=== PATIENT | male | born 1990 | race Two or more races ===

== ENCOUNTER 2022-10-06 02:25 | Emergency (ER) | payer OTHER ==
[~2022-10-06] VITALS: Ht 170.2 cm; Wt 67.1 kg
[~2022-10-06 02:25] MED LIST: KETO10TA2 PO
== END 2022-10-06 05:11 | disposition home or self-care (01) ==
LOC: ER 02:25
DX: K52.9 Noninfective gastroenteritis and colitis, unspecified (principal); Z20.822 Contact with and (suspected) exposure to COVID-19

== ENCOUNTER 2025-07-24 12:07 | Emergency (ER) | payer OTHER ==
[~2025-07-24] VITALS: Ht 172.7 cm; Wt 71.7 kg
[2025-07-24] MEDS ORDERED: DEXAMETHASONE SODIUM PHOSPHATE 4 MG/ML VIAL IM STA (15:19)
[2025-07-24] MEDS ORDERED: CLINDAMYCIN PHOSPHATE 600 MG in DEXTROSE 5 % IN WATER 50 ML IV STA (15:19)
[2025-07-24] MEDS ORDERED: KETOROLAC TROMETHAMINE 30 MG VIAL IV STA (15:20)
[2025-07-24] MEDS ORDERED: DEXAMETHASONE SODIUM PHOSPHATE 4 MG/ML VIAL ONE (15:41)
[2025-07-24] MEDS ORDERED: KETOROLAC TROMETHAMINE 30 MG VIAL ONE (15:41)
[2025-07-24] MEDS ORDERED: CLINDAMYCIN PHOSPHATE 150 MG/ML (300mg) ONE (15:41)
[2025-07-24 16:38] LABS: BASO % 0.3 % (0.1-1.2); EOS # 0.25 (0.04-0.54); EOS % 2.5 % (0.7-7.0); LYMPH # 2.35 (1.18-3.74); LYMPH % 23.4 % (19.3-53.1); MEAN PLATELET VOLUME 9.50 fl (9.4-12.4); MONO # 0.69 (0.24-0.82); MONO % 6.9 % (4.7-12.5); NEUT # 6.69 (1.56-6.13); NEUT % 66.5 % (34.0-71.1); RED CELL DISTRIBUTION WIDTH 12.2 % (11.6-14.4)
[2025-07-24 16:40] LABS: ERYTHROCYTE SEDIMENTATION RATE 1 mm/hr (0-15)
[2025-07-24] MEDS ORDERED: BACTRIM DS TAB1 EACH PO (18:08)
[2025-07-24] MEDS ORDERED: NAPROXEN500 MG PO (18:08)
== END 2025-07-24 19:09 | disposition home or self-care (01) ==
LOC: ER 12:07
PROVIDERS: General Practice
DX: L03.114 Cellulitis of left upper limb (principal)